=== PATIENT | male | born 1945 | race Caucasian/White ===

== ENCOUNTER 2022-05-04 11:25 | Observation (INO) ==
[2022-05-04] MEDS ORDERED: CeFAZolin Syr 2,000MG/20 ML 2,000 MG/20 ML SYRINGE IVPB ONE (11:45)
[2022-05-04] MEDS ORDERED: Ringers Solution, Lactated 1,000 ML IVC SCH (11:45)
[2022-05-04] MEDS ORDERED: *HR* OxyCODONE Immed Rel 5 MG TABLET PO PRN (12:31)
[2022-05-04] MEDS ORDERED: *HR* Labetalol 20 MG/4 ML SYRINGE IVP PRN (12:31)
[2022-05-04] MEDS ORDERED: *HR* HYDROmorphone 2 MG TABLET PO PRN (12:31)
[2022-05-04] MEDS ORDERED: Ondansetron 4 MG/2 ML VIAL IVP PRN (12:31)
[2022-05-04] MEDS ORDERED: Ketorolac 30 MG/ML VIAL IVP PRN (12:31)
[2022-05-04] MEDS ORDERED: Acetaminophen IV 1,000 MG/100 ML BAG IVPB ONE (12:31)
[2022-05-04] MEDS ORDERED: Famotidine 20 MG/2 ML VIAL IVP ONE (12:31)
[2022-05-04] MEDS ORDERED: *HR* HYDROmorphone PF 0.5 MG/0.5 ML SYRINGE IVP PRN (12:31)
[2022-05-04] MEDS ORDERED: Promethazine 6.25 MG in Water for inj. (sterile) 20 ML IVPB PRN (12:32)
[2022-05-04] MEDS ORDERED: *HR* FentaNYL (PF) 100 MCG/2 ML VIAL ONE (12:50)
[2022-05-04] MEDS ORDERED: *HR* Propofol 200 MG/20 ML VIAL IVP ONE (12:51)
[2022-05-04] MEDS ORDERED: Bupivacaine 0.5%-Epi 1:200,000 50 ML VIAL ONE (12:51)
[2022-05-04] MEDS ORDERED: *HR* Rocuronium Bromide 50 MG/5 ML VIAL ONE (12:55)
[2022-05-04] MEDS ORDERED: Ondansetron 4 MG/2 ML VIAL ONE (12:55)
[2022-05-04] MEDS ORDERED: *HR* Succinylcholine 200 MG/10 ML VIAL IVP ONE (12:55)
[2022-05-04] MEDS ORDERED: EPHEDrine 50 MG/ML VIAL ONE (12:55)
[2022-05-04] MEDS ORDERED: Lidocaine -MPF 2% 5 ML VIAL ONE (12:55)
[2022-05-04] MEDS ORDERED: *HR* HYDROMORPHONE 2 MG/ML VIAL ONE (14:52)
[2022-05-04 16:16] LABS: ABG Base Excess -5 mEq/L (-2 to 3); ABG HCO3 21 mEq/L (21-27); ABG Oxygen Saturation 98 % (95-98); ABG PCO2 46 mmHg (35-45); ABG PH 7.28 pH Units (7.32-7.45); ABG PO2 118 mmHg (85-104); ABG TCO2 23 mEq/L (20-26)
[2022-05-04] MEDS ORDERED: Prochlorperazine 10 MG/2 ML VIAL IVP PRN (20:18)
[2022-05-04] MEDS ORDERED: Nitroglycerin 0.4 MG TAB.SUBL SL PRN (20:23)
[2022-05-04] MEDS ORDERED: Dextrose Gel 15 GM/37.5 ML TUBE PO PRN ×2 (20:23)
[2022-05-04] MEDS ORDERED: *HR* OxyCODONE/APAP 5/325 TABLET PO PRN (20:23)
[2022-05-04] MEDS ORDERED: D5% in Water 1,000 ML IVC PRN (20:23)
[2022-05-04] MEDS ORDERED: *HR* Dextrose 50 % in Water (Syg) 50 ML SYRINGE IVP PRN (20:23)
[2022-05-04] MEDS: *HR* Heparin 5,000 UNIT/ML VIAL SQ SCH (20:55)
[2022-05-04] MEDS: *HR* GlipiZIDE XL (24 HR) 10 MG TABLET PO SCH (20:56)
[2022-05-04] MEDS: *HR* Metformin 500 MG TABLET PO SCH (20:56)
[2022-05-04] MEDS ORDERED: Insulin LISPRO 300 UNITS/3 ML VIAL SUBQ SCH (21:00)
[2022-05-04] MEDS: ceFAZolin 1,000 MG in Water for inj. (sterile) 10 ML IVP SCH (23:25)
[2022-05-04] MEDS: Ondansetron 4 MG/2 ML VIAL IVP PRN (23:48)
[2022-05-05] MEDS ORDERED: Prochlorperazine 10 MG/2 ML VIAL IVP PRN (00:07)
[2022-05-05] MEDS: *HR* Heparin 5,000 UNIT/ML VIAL SQ SCH (05:39)
[2022-05-05] MEDS: amLODIPine 5 MG TABLET PO SCH (08:28)
[2022-05-05] MEDS: ceFAZolin 1,000 MG in Water for inj. (sterile) 10 ML IVP SCH (08:29)
[2022-05-05] MEDS: Ondansetron 4 MG/2 ML VIAL IVP PRN (08:29)
[2022-05-05] MEDS: *HR* GlipiZIDE XL (24 HR) 10 MG TABLET PO SCH (08:42)
[2022-05-05] MEDS: *HR* Metformin 500 MG TABLET PO SCH (08:42)
[2022-05-05 10:31] LABS: Basophils % 0.1 %; Hematocrit 34.8 % (37.5-50.1); Hemoglobin 11.1 g/dL (12.9-16.9); Immature Granulocytes % 0.6 % (0-4); Lymphocytes # 2.1 K/mcL (0.6-4.6); Lymphocytes % 12.9 %; Mean Corpuscular HGB Conc 31.9 g/dL (31.6-35.5); Mean Corpuscular Hemoglobin 28.2 pg (28.0-33.3); Mean Corpuscular Volume 88.3 fL (83.0-100.0); Mean Platelet Volume 12.6 fL (9.4-12.4); Monocytes # 1.2 K/mcL (0.0-1.3); Monocytes % 7.3 %; Neutrophils # 12.8 K/mcL (1.6-8.9); Platelet Count 186 K/mcL (140-400); Red Blood Count 3.94 M/mcL (4.19-5.50); Red Cell Distribution Width 13.7 % (11.5-14.5); Segmented Neutrophils % 79.1 %; White Blood Count 16.2 K/mcL (4.3-11.1)
[2022-05-05 10:49] LABS: Chol/HDL Ratio 2.9 (0-4.9)
[2022-05-05 10:52] LABS: Magnesium 1.5 mg/dL (1.6-2.6); Phosphorous 3.9 mg/dL (2.7-4.5); Potassium 5.3 mEq/L (3.5-5.1)
[2022-05-05 11:04] LABS: Thyroid Stimulating Hormone 0.685 mcIU/mL (0.340-5.600)
[2022-05-05] MEDS: 0.9 % Sodium Chloride 1,000 ML IVC SCH (12:21)
[2022-05-05] MEDS: Acetaminophen 325 MG TABLET PO SCH ×3 (12:21→22:55)
[2022-05-05] MEDS: Insulin LISPRO 300 UNITS/3 ML VIAL SUBQ SCH (17:31)
[2022-05-05] MEDS ORDERED: Insulin LISPRO 300 UNITS/3 ML VIAL SUBQ SCH (21:00)
[2022-05-05] MEDS: Apixaban 5 MG TABLET PO SCH (21:43)
[2022-05-06] MEDS: 0.9 % Sodium Chloride 1,000 ML IVC SCH (01:15)
[2022-05-06 02:18] LABS: Basophils % 0.3 %; Eosinophils # 0.1 K/mcL (0.0-0.6); Eosinophils % 0.7 %; Hematocrit 33.7 % (37.5-50.1); Hemoglobin 10.9 g/dL (12.9-16.9); Immature Granulocytes % 0.5 % (0-4); Lymphocytes # 3.1 K/mcL (0.6-4.6); Lymphocytes % 20.8 %; Mean Corpuscular HGB Conc 32.3 g/dL (31.6-35.5); Mean Corpuscular Volume 89.6 fL (83.0-100.0); Mean Platelet Volume 12.1 fL (9.4-12.4); Monocytes # 0.9 K/mcL (0.0-1.3); Monocytes % 5.8 %; Neutrophils # 10.8 K/mcL (1.6-8.9); Platelet Count 164 K/mcL (140-400); Red Blood Count 3.76 M/mcL (4.19-5.50); Red Cell Distribution Width 13.7 % (11.5-14.5); Segmented Neutrophils % 71.9 %; White Blood Count 15.1 K/mcL (4.3-11.1)
[2022-05-06 02:34] LABS: Calcium 8.5 mg/dL (8.6-10.3); Potassium 4.7 mEq/L (3.5-5.1)
[2022-05-06 02:59] LABS: Estimated Average Glucose 174 mg/dl; Hemoglobin A1C 7.7 %
[2022-05-06] MEDS: Acetaminophen 325 MG TABLET PO SCH (05:35)
[2022-05-06 07:12] VITALS: BP 178/74; PULSE 63; TEMP 98.1; O2SAT 95
[2022-05-06] MEDS ORDERED: hydrALAZINE 25 MG TABLET PO SCH (08:27)
[2022-05-06] MEDS: Apixaban 5 MG TABLET PO SCH (08:35)
[2022-05-06] MEDS: amLODIPine 5 MG TABLET PO SCH (08:35)
[2022-05-06] MEDS: Insulin LISPRO 300 UNITS/3 ML VIAL SUBQ SCH (08:35)
[2022-05-06 09:31] LABS: Bilirubin,Urine Negative (Negative); Blood,Urine Negative (Negative); Clarity,Urine Clear (Clear); Color,Urine Colorless (Yellow); Glucose,Urine (UA) Normal (Normal); Ketones,Urine Negative (Negative); Leukocyte Esterase,Urine Negative (Negative); Nitrite,Urine Negative (Negative); Protein,Urine Trace mg/dL (Neg-Trace); Specific Gravity,Urine 1.014 (1.010-1.025); Urobilinogen,Urine Normal (Normal)
[2022-05-06 09:41] LABS: Protein/Creatinine Ratio,Urine 0.51 mg/mg (0.00-0.20)
== END 2022-05-06 12:46 | disposition home or self-care (01) ==
LOC: SUATTDRO → SAMDAY 11:25 → 3BNU 11:25
PROVIDERS: ADMIT Registered Nurse; ATTEND Registered Nurse